=== PATIENT | female | born 2000 | race Caucasian/White ===

== ENCOUNTER 2024-03-22 20:10 | Emergency (ER) | payer BC, SELFPAY ==
[2024-03-22 20:12] VITALS: BP 136/57
--- NOTE | 2024-03-22 21:19 | ED.GENMED ---
History of Present Illness
General
Chief Complaint: Abdominal Pain
Source: patient
Exam Limitations: none
Time Seen by Provider: 03/22/24 20:52
Travel History
Have you had any contact with someone who has COVID-19?: No
Do you have any symptoms of coronavirus? Fever > 100 degrees, chills, cough, shortness of breath, sore throat, loss of taste or smell, muscle aches, or headache?: No
History of Present Illness
History of Present Illness:
This is a 24 year old female that comes in with c/o pain under her ribs. States that this started a week ago and the fist episode lasted 1 hour. Then on Friday she had the pain again and it only lasted a few min. Then today she quijano pain again and it
has been more the 2.5 hours. States that she is slightly SOB. States that she had her 4th Wegovy shot a week ago and it due for the next shot next week. Denies any fever, chills, chest pain, nausea, vomiting, diarrhea, headache, dizziness, urinary
burning.
Past History
Past History
ED Past Medical History: Psychiatric (ADHD, Anxiety)
ED Past Surgical History: Other (Dental)
Social History
Tobacco: Former smoker
Alcohol: Occasional
Personal: Single
Living: with family
Employment: Employed
Review of Systems
Review of Systems
All Other Systems: ROS reviewed and negative except as documented in HPI and ROS
Constitutional: Reports no symptoms; Denies fever or chills
EENT: Reports no symptoms
Respiratory: Reports trouble breathing (Slight); Denies cough
Cardiac: Reports no symptoms; Denies chest pain
ABD/GI: Reports abdominal pain (Upper abd); Denies nausea, vomiting or diarrhea
: Reports no symptoms; Denies dysuria, frequency or urgency
Musculoskeletal: Reports no symptoms
Skin: Reports no symptoms
Neurological: Reports no symptoms; Denies dizzy or headache
Psychiatric: Reports no symptoms
Phy Exam
General Physical Exam
General Presentation: no apparent distress
General age: appears stated age
General Skin: warm and dry
General Habitus: normal
General Mental: alert
General Hydration: appears well hydrated
ENT Exam
ENT Exam: TM's normal, pharynx normal and neck supple
Eye Exam
Eye Exam: EOMI
Cardiovascular Exam
Cardiovascular Exam: regular rate/rhythm, no edema, no murmur and normal peripheral pulses
Pulmonary Exam
Pulmonary Exam: lungs clear, no respiratory distress, no rales, chest non tender, no crackles, no rhonchi, no wheezing and no cough
Gastrointestinal Exam
Gastrointestinal Exam: normal bowel sounds, soft, no organomegaly, no pulsatile mass, non distended and tender (epigastric and right upper abd tenderness with palpation)
Musculoskeletal Exam
Musculoskeletal Exam: full ROM and no edema
Skin Exam
Skin Exam: normal color, warm/dry, no rash and no petechia
Psychiatric Exam
Psychiatric Exam: normal mood/affect
Course
Orders/Labs/Results
Orders:
Orders
03/22/24 20:15
Electrocardiogram (*1) Urgent
Reason for Study: Abdominal Pain
03/22/24 20:16
EKG- Treatment ONCE
03/22/24 21:11
Test Result ONCE
US Abdomen Complete/Upper Urgent
Comment:
Reason For Exam: Upper abd pain
03/22/24 21:24
Complete Blood Count/With Diff Urgent
Comprehensive Metabolic Panel Urgent
HCG, Serum Qualitative Screen Urgent
Lipase Urgent
03/22/24 21:31
Ketorolac [Toradol] 30 mg .ROUTE .STK-MED ONE
Ketorolac [Toradol] 30 mg IV NOW STA
Abnormal Lab Results
03/22/24
21:24
WBC 12.1 H 10^3/uL
(4.8-10.8)
Hct 35.7 L %
(37.0-47.0)
Abs Immat Gran (auto) 0.1 H 10^3/uL
(0-0.05)
Absolute Neuts (auto) 9.5 H 10^3/uL
(1.4-6.5)
Absolute Monos (auto) 0.7 H 10^3/uL
(0.1-0.6)
Neutrophils % 78.3 H %
(42.2-75.2)
Lymphocytes % 14.4 L %
(20.5-51.1)
Glucose 108 H mg/dl
(70-99)
03/22/24 21:24
03/22/24 21:24
Leukocytosis, Glucose nonfasting. Lipase normal at 119, HCG negative.
Vital Signs
Initial and Last Documented VS:
Initial Vital Signs
Temp Pulse Resp BP Pulse Ox
97.7 F 88 26 136/57 100
03/22/24 20:12 03/22/24 20:12 03/22/24 20:12 03/22/24 20:12 03/22/24 20:12
Last Documented Vital Signs
Temp Pulse Resp BP Pulse Ox
97.7 F 94 18 138/69 99
03/22/24 20:12 03/22/24 21:25 03/22/24 21:25 03/22/24 21:25 03/22/24 21:25
MDM/Problems Addressed
Differential Diagnosis Includes:
Pancreatitis, Gallbladder disease
MDM/Problems Addressed:
This is a 24 year old female that comes in with c/o upper abd pain. States that this started a week ago and this is her third episode. States that before it went away on its own but this has lasted longer. Patient had her 4th injection of Wegovy a
week ago. States that she is due next week for the 5th shot.
Will check labs and get US.
Back into see patient and mom. Explained that her US shows she has small layering gallstones but there is no wall thickening and her blood work is normal. Patient states that this time her pain is mostly gone. Encouraged patient to stay away from
Fried fatty foot. Follow up with the Family doctor. Return with increased or changing pain, fever, or any other concerns.
Chronic conditions affecting care:
NA
Acute Exacerbation and/or Progression of Chronic Illness:
NA
*Radiology
Radiology exam reviewed: radiology read reviewed (US=There is cholelithiasis with small calculi layering in dependent position)
*Pulse Oximetry
Patient hypoxic: no
*EKG
Interpreted by ED Provider?: NA
Rate: EKG- N/A
*Stonemason Apprentice Interpretation
Rate: Stonemason Apprentice- N/A
*Critical Care Note
Total Time (30-74mins, 75-104mins- exclusive of procedures): Not Applicable
ED Attending Note
-
Portions of this chart may have been created with voice recognition software.� Occasional wrong word or��sound alike� substitutions may have occurred due to the inherent limitations of voice recognition software.
Discharge Plan
Departure
Patient Disposition: Home (Routine Discharge)
Date of Disposition: 03/22/24
Time of Disposition: 22:39
Patient with high blood pressure during this ER visit?: Yes
Condition: Good
Covid-19: Not Applicable
Discharge Problem:
Cholelithiasis
Instructions: Gallstones (DC), BLOOD PRESSURE
Prescriptions:
No Action
methylphenidate HCl 10 MG tablet
10 mg PO DAILY
methylphenidate HCl [Concerta] 54 MG tablet extended release 24hr
54 mg PO DAILY
sertraline 100 MG tablet
100 mg PO DAILY
Referrals:
cSarlet Rodriguez MD [Family Provider] - Call in 1-3 days for appt
Activity Restrictions/Additional Instructions:
As discussed, your blood work shows that your WBC are slightly elevated. Otherwise your labs are normal. Your US shows that you have Gallstones but there is no gallbladder wall thickening or ductal dilation. Please follow up with the family doctor
for recheck. Stay away from Fried fatty food. IF YOU HAVE INCREAESED OR CHANGING PAIN, VOMITING, OR YOU HAVE ANY OTHER CONCERNS PLEASE RETURN TO THE EMERGENCY ROOM.
Interventions
Interventions:
*Risk Screen - Suicide Last Done: 03/22/24 20:12
*Neglect/Abuse Screening Last Done: 03/22/24 20:12
ED- Fall Risk Assessment Last Done: 03/22/24 22:31
BE-Mkzxeg-Ejnobvycxv Assessment Last Done: 03/22/24 22:31
Discharge Date and Time
Print Language: HUNGARIAN
[2024-03-22 21:24] VITALS: BMI 36.7
[2024-03-22 21:25] VITALS: BP 138/69
[2024-03-22 21:30] LABS: % Basophils 0.2 % (0-2); % Eosinophils 0.8 % (0-6); % Immature Granulocytes 0.4 % (0-0.5); % Lymphocytes 14.4 % (20.5-51.1); % Monocytes 5.9 % (1.7-9.3); % Neutrophils 78.3 % (42.2-75.2); Absolute Eosinophils 0.1 10^3/uL (0-0.7); Absolute Immature Granulocytes 0.1 10^3/uL (0-0.05); Absolute Lymphocytes 1.8 10^3/uL (1.2-3.4); Absolute Monocytes 0.7 10^3/uL (0.1-0.6); Absolute Neutrophils 9.5 10^3/uL (1.4-6.5); Hematocrit 35.7 % (37.0-47.0); Hemoglobin 12.6 g/dL (12.0-16.0); Mean Corp Hgb Conc. 35.3 g/dL (33.0-37.0); Mean Corpuscular Volume 82.3 fL (81.0-99.0); Nucleated Red Blood Cells % 0 %; Platelet Count 173 10^3/uL (130-400); Red Blood Cell Count 4.34 10^6/uL (4.20-5.40); Red Cell Dist. Width 12.8 % (11.5-14.5); White Blood Cell Count 12.1 10^3/uL (4.8-10.8)
[2024-03-22] MEDS: TORADOL 30 MG IV (21:32)
[2024-03-22 21:41] LABS: HCG, Serum Qualitative Screen Negative
[2024-03-22 21:45] LABS: ALT (SGPT) 23 U/L (0-35); AST (SGOT) 32 U/L (14-36); Albumin 4.5 g/dl (3.5-5.0); Alkaline Phosphatase 73 U/L (38-126); Blood Urea Nitrogen 11 mg/dl (7-17); Calcium 9.2 mg/dl (8.4-10.2); Carbon Dioxide 25 mmol/L (22-30); Chloride 106 mmol/L (98-107); Estimated Creatinine Clearance > 125 ml/min; Glucose 108 mg/dl (70-99); Lipase 119 U/L (23-300); Potassium 3.7 mmol/L (3.5-5.1); Sodium 141 mmol/L (135-145); Total Bilirubin 0.4 mg/dl (0.2-1.3); Total Protein 7.8 g/dl (6.3-8.2); eGFR > 60.00
[2024-03-22 22:51] VITALS: BP 117/68
[2024-03-22 22:52] VITALS: BP 117/68
== END 2024-03-22 22:53 | disposition home or self-care (01) ==
LOC: EMR 20:10
PROVIDERS: Clinical Nurse Specialist Family Health; EMERGENCY PHYSICIAN Emergency Medicine; FAMILY PHYSICIAN Family Medicine
DX: K80.20 Calculus of gallbladder without cholecystitis without obstruction (principal); R06.02 Shortness of breath; R03.0 Elevated blood-pressure reading, without diagnosis of hypertension; F41.9 Anxiety disorder, unspecified; F90.9 Attention-deficit hyperactivity disorder, unspecified type; Z87.891 Personal history of nicotine dependence
CPT/HCPCS: 99284; 96374; 76700; 80053; 83690; 84703; 85025; 93005